=== PATIENT | female | born 1965 | race African-American/Black ===

== ENCOUNTER 2019-12-14 14:06 | Observation (INO) ==
[2019-12-14] MEDS ORDERED: GABAPENTIN 300 MG CAPSULE PO PRN (17:24)
[2019-12-14] MEDS ORDERED: CYCLOBENZAPRINE 10 MG TABLET PO PRN (17:24)
[2019-12-14] MEDS ORDERED: MAGNESIUM CITRATE 300 ML BOTTLE PO PRN (17:24)
[2019-12-14] MEDS ORDERED: ENOXAPARIN 60 MG/0.6 ML SYRINGE SUBCUT ONE (17:28)
[2019-12-14] MEDS ORDERED: GLUCAGON 1 MG VIAL IM PRN ×2 (17:33→17:42)
[2019-12-14] MEDS ORDERED: DEXTROSE 10% 250 ML BAG IV PRN (17:33)
[2019-12-14 17:40] LABS: Basophils % 0.5 % (0.0-0.8); Eosinophils # 0.1 10*3/uL (0.0-0.87); Eosinophils % 1.7 % (0.00-10.9); Hematocrit 38.5 VOL% (35.7-47.0); Hemoglobin 12.8 GM/DL (12.0-16.0); Immature Granulocytes % 0.2 %; Immature Granulocytes Absolute 0.01 #; Lymphocytes # 1.7 10*3/uL (1.4-4.0); Lymphocytes % 39.8 % (21.3-54.2); Mean Corpuscular HGB Conc 33.2 GM/DL (32-36); Mean Corpuscular Volume 91.4 FL (87-102); Mean Platelet Volume 9.1 FL (9.6-12.0); Monocytes % 12.9 % (1.7-12.7); Neutrophils % 44.9 % (38.7-73.9); Platelet Count 174 T/CUMM (130-400); Red Blood Count 4.21 MC/CUMM (3.8-5.5); Red Cell Distribution Width 11.9 % (9.3-17.3); White Blood Count 4.2 T/CUMM (4-12)
[2019-12-14] MEDS ORDERED: NICOTINE 7 MG/24 HR PATCH TRANSDERM PRN (17:41)
[2019-12-14] MEDS ORDERED: DEXTROSE 50% 25 GM/50 ML VIAL IV PRN (17:42)
[2019-12-14 18:01] LABS: Calcium 8.5 MG/DL (8.5-10.1); Osmolality,Calculated 280.7 MOS/KG (273-304)
[2019-12-14] MEDS: lisinopriL 20 MG TABLET PO SCH (20:16)
[2019-12-14] MEDS: INSULIN LISPRO 100 UNIT/ML SUBCUT SCH (20:29)
[2019-12-14] MEDS ORDERED: SIMVASTATIN 10 MG TABLET PO SCH (21:00)
[2019-12-14] MEDS ORDERED: INSULIN GLARGINE 100 UNIT/ML SUBCUT SCH (21:00)
[2019-12-15] MEDS ORDERED: PANTOPRAZOLE 40 MG TABLET PO SCH (06:30)
[2019-12-15] MEDS ORDERED: METOCLOPRAMIDE 10 MG TABLET PO SCH (08:00)
[2019-12-15] MEDS ORDERED: hydrALAZINE 20 MG/1 ML VIAL IV PRN (08:07)
[2019-12-15] MEDS: INSULIN LISPRO 100 UNIT/ML SUBCUT SCH ×2 (08:47→12:35)
[2019-12-15] MEDS: lisinopriL 20 MG TABLET PO SCH (08:48)
[2019-12-15] MEDS ORDERED: NON-FORMULARY MEDICATION (Omeprazole 40 MG) PO SCH (09:00)
[2019-12-15] MEDS ORDERED: METOPROLOL SUCCINATE XL 50 MG TABLET PO SCH (09:00)
[2019-12-15] MEDS ORDERED: ALUM/MAG/SIMETH/LIDO VISC 1:1 30 ML BOTTLE PO ONE (11:52)
[2019-12-15 12:40] VITALS: BP 172/68
== END 2019-12-15 12:40 | disposition home or self-care (01) ==
LOC: N.TELES → SUATTDRO 15:37
PROVIDERS: ADMIT Internal Medicine; ATTEND Internal Medicine